=== PATIENT | female | born 1935 | race Caucasian/White ===

== ENCOUNTER 2018-04-14 16:26 | Inpatient (IN) | payer MEDICARE, OTHER ==
[~2018-04-14] VITALS: Ht 162.6 cm; Wt 75.3 kg
[~2018-04-14 16:26] MED LIST: APIX2.5T PO; ATOR10TA70 PO; CARV-49 PO; FURO40TA4 PO; LEVO50TA78 PO; LOSA25TA41 PO; POTA10CA44 PO
--- NOTE | 2018-04-14 16:33 | NUR ---
1 EPIP PUSHED CPR STARTED NO PULSE
[2018-04-14] MEDS ORDERED: ePHEDrine 50MG/ML INJ. IV ONE ×2 (16:35→16:45)
[2018-04-14] MEDS ORDERED: sodium bicarbonate (8.4%) 1 mEq/ml syringe IV ONE (16:35)
--- NOTE | 2018-04-14 16:40 | NUR ---
PT HR 118
--- NOTE | 2018-04-14 16:42 | NUR ---
PT HR 77
--- NOTE | 2018-04-14 16:51 | NUR ---
1650 DOPAMINE STARTED AT 6 MCG/MIN. DR ASHTON ORDERED POTASSIUM 10MEQ TO RUN OVER 15 MIN.
--- NOTE | 2018-04-14 16:54 | NUR ---
REJ IV STARTED. LABS DRAWN. 2L NS STARTED. 149/33 62 ETCO2 8 1656 PT BECAME PULSELESS, DR ASHTON AT BEDSIDE, EPI 1 AM ADMIN. 1657 BICARB 1 AMP ADMIN 1658 PULSE CHECK, POSITIVE THREADY PULSE. DOPAMINE INCREASED TO 8MCG. 1700 120/80 147 ETCO2 30 SPO2 64 FIO2 100 TEMP SORENSON PLACED TEMP 34.8 1706 115/71 137 89% FIO2 100 ETCO2 24 TEMP 34.7
[2018-04-14] MEDS ORDERED: potassium 10mEq/100ml NS w/LIDOcaine (10mg/bag) IV ONE (16:55)
[2018-04-14 17:21] LABS: ABG BASE EXCESS -8.5 mmol/L (-2.0-3.0); ABG HCO3 19.5 mmol/L (22.0-26.0); ABG OXYGEN SATURATION 97.6 % (95-98); ABG PCO2 (T) 45.4 mmHg (32.0-45.0); ABG PH (T) 7.237 (7.350-7.450); ABG PO2 (T) 121.7 mmHg (83-108); FCOHb 0.9 % (0.5-1.5); FMetHb 0.2 % (0.3-1.12); FO2Hb 96.5 % (94-100); PATIENT TEMPERATURE 34.4; PEEP 5 cm H2O; RESPIRATORY RATE 16 b/min; TIDAL VOLUME 500 mL; TOTAL HEMOGLOBIN 12.7 G/dl (12.0-16.0)
[2018-04-14] MEDS ORDERED: aspirin 81mg tab.chew PO ONE (17:30)
[2018-04-14] MEDS: DOPamine 400mg/D5W 250ml 250 ML IV SCH (17:35)
--- NOTE | 2018-04-14 17:44 | NUR ---
BP 115/60 HR 133 SAT 100 RR 21 TEMP 33.2 FI02 81
[2018-04-14 17:48] LABS: BASOPHILS % (AUTO) 0.3 % (0-1); EOSINOPHILS # (AUTO) 0.1 X10'3 (0-0.9); EOSINOPHILS % (AUTO) 1.3 % (0-6); HEMATOCRIT 37.1 % (35.0-45.0); HEMOGLOBIN 11.7 g/dl (12.0-16.0); LYMPHOCYTES # (AUTO) 2.5 X10'3 (1.1-4.8); MEAN CORPUSCULAR HEMOGLOBIN 27.8 PG (27.0-31.0); MEAN CORPUSCULAR HGB CONC 31.4 % (33.0-36.5); MEAN CORPUSCULAR VOLUME 88.6 FL (78-98); MEAN PLATELET VOLUME 7.9 FL (7.4-10.4); MONOCYTES # (AUTO) 0.6 X10'3 (0-0.9); MONOCYTES % (AUTO) 6.5 % (2-12); NEUTROPHILS # (AUTO) 6.6 X10'3 (1.8-7.7); NEUTROPHILS % (AUTO) 66.9 % (42-75); PLATELET COUNT 226 X10'3 (140-440); RED BLOOD COUNT 4.19 X10'6 (4.20-5.60); RED CELL DISTRIBUTION WIDTH 18.5 % (11.5-14.5); WHITE BLOOD COUNT 9.9 X10'3 (4.5-11.0)
[2018-04-14 18:00] LABS: ALANINE AMINOTRANSFERASE 25 U/L (12-78); ALBUMIN 2.1 G/DL (3.4-5.0); ALBUMIN/GLOBULIN RATIO 0.6 (1.1-1.5); ALKALINE PHOSPHATASE 58 IU/L (46-116); ANION GAP 18 (8-16); ASPARTATE AMINO TRANSFERASE 46 U/L (10-37); BILIRUBIN,TOTAL 1.4 MG/DL (0.1-1.0); BLOOD UREA NITROGEN 42 MG/DL (7-18); BUN/CREATININE RATIO 23.5 (6.6-38.0); CALCIUM 8.1 MG/DL (8.5-10.1); CHLORIDE 103 MMOL/L (99-107); CREATININE 1.79 MG/DL (0.40-0.90); GLUCOSE 251 MG/DL (70-104); SODIUM 142 MMOL/L (135-145); TOTAL CARBON DIOXIDE 21.1 MMOL/L (24-32); TOTAL PROTEIN 5.7 G/DL (6.4-8.2); eGFR 27 ML/MIN
[2018-04-14 18:03] LABS: POTASSIUM 3.7 MMOL/L (3.5-5.1)
[2018-04-14 18:08] LABS: MAGNESIUM 2.2 MG/DL (1.5-2.4)
--- NOTE | 2018-04-14 18:12 | NUR ---
INTENSIVEST AT BEDSIDE. ORDERED TO DECREASED 80 TO 60 FIO2 PEEP 8 VT DECREASED 500 TO 450
[2018-04-14 19:05] LABS: TOTAL CELLS COUNTED 100
[2018-04-14 19:06] LABS: ANISOCYTOSIS 2+; PLATELET ESTIMATE NORMAL
[2018-04-14 19:07] LABS: BURR CELLS 2+
--- NOTE | 2018-04-14 19:41 | NUR ---
INFORMED DA ZELAYA OF PTS FULL BODY JERKING MOVEMENT AND BITING THE TUBE. ALSO TOLD THAT PT IS STILL 4MM AND FIXED BILATERAL PUPILS AND UNRESPONSIVE TO PAINFUL STIMULI. STATED HE WOULD PUT IN ORDERS FOR COOLING MEASURES
[2018-04-14] MEDS ORDERED: CISatracurium besylate inj. 200 MG in normal saline 250ml IV soln 180 ML IV PRN (19:44)
[2018-04-14] MEDS ORDERED: vancomycin/NS 1 GM ADD-VANTAGE 250 ML IV ONE (19:45)
[2018-04-14] MEDS ORDERED: potassium Cl 40MEQ/250ML bag 250 ML IV SCH (19:45)
[2018-04-14] MEDS ORDERED: potassium Cl 20 mEq SR tablet PO PRN ×2 (19:45)
[2018-04-14] MEDS ORDERED: sodium phosphate inj. 15 MMOL in dextrose 5%-water 150 ML IV PRN (19:45)
[2018-04-14] MEDS ORDERED: sodium phosphate inj. 30 MMOL in dextrose 5%-water 250 ML IV PRN (19:45)
[2018-04-14] MEDS ORDERED: CISatracurium **Bolus** 2 mg/ml inj IV PRN (19:45)
[2018-04-14] MEDS: K, MAG and/or Phos replacement - Verify level? MC SCH (19:45)
[2018-04-14] MEDS ORDERED: potassium Cl 40MEQ/250ML bag 250 ML IV PRN (19:45)
[2018-04-14] MEDS ORDERED: Neutra Phos packet PO PRN (19:45)
--- NOTE | 2018-04-14 19:54 | NUR ---
NATHALIE WANTED ME TO PLACE PT BACK ON ICE FOR PROTOCOL COOLING. PT IS 32.6 BLADDER TEMP AND PROTOCOL WANTS BETWEEN 32-34 C, SO ICE NOT APPLIED
[2018-04-14] MEDS: mineral oil/petrolatum ophthal oint OP SCH (20:00)
--- NOTE | 2018-04-14 20:08 | NUR ---
PTS FAMILY AT BEDSIDE. ABLE TO ANSWER SOME QUESTIONS, BUT PAGED DA ZELAYA FOR FURTHER QUESTIONS
[2018-04-14] MEDS ORDERED: acetaminophen 325mg tablet PO PRN (20:10)
[2018-04-14] MEDS ORDERED: acetaminophen 650mg rectal suppository RC PRN (20:10)
[2018-04-14 20:27] LABS: INR 1.5 INR; PARTIAL THROMBOPLASTIN TIME 28 SECONDS (22-32); PROTHROMBIN TIME 14.5 SECONDS (9.0-12.0)
[2018-04-14] MEDS: heparin, porcine 5000 units/ml vial SQ SCH (20:32)
[2018-04-14] MEDS: normal saline 1000ml 1,000 ML IV SCH (20:32)
[2018-04-14] MEDS: piperacillin/tazo 3.375gm/50ml 50 ML IV SCH (20:39)
[2018-04-14] MEDS: meperidine/PF 50mg/ml syringe IV SCH (20:59)
--- NOTE | 2018-04-14 21:06 | NUR ---
PER CLINICAL PHARM, NIMBEX, DOPAMINE, VANCO COMPATIBLE PIV ON LEFT EJ. ZOSYN SEPARATE ON RIGHT HAND WITH NS
--- NOTE | 2018-04-14 21:20 | NUR ---
I have received report from Mariano ESTES and had the opportunity to ask questions and assume patient care.
--- NOTE | 2018-04-14 21:30 | NUR ---
Pt to room 2007, bagged by RT. Pt is Post Code on cooling measures, slight facial twitching noted, Nimbex had been started in ED, will titrate if needed. Pt has some bruising on her right side from a previous fall, still waiting on [place] medical records. No family at bedside.
[2018-04-14 22:00] VITALS: BP 135/94
[2018-04-14] MEDS: FENTANYL-0.9 % NACL/PF 100 ML IV PRN (22:27)
[2018-04-14] MEDS: midazolam 100mg in NS 100ml 100 ML IV PRN (22:28)
[2018-04-14] MEDS: amiodarone/D5 360MG/200ML BAG 200 ML IV SCH (22:42)
[2018-04-14 23:00] VITALS: BP 151/84
[2018-04-14] MEDS: ipratropium/albuterol 3ml nebule NEB SCH (23:24)
[2018-04-15] VITALS (24 sets, daily range): BP systolic 73–131; BP diastolic 48–92
[2018-04-15] MEDS: mineral oil/petrolatum ophthal oint OP SCH ×6 (00:19→20:11)
[2018-04-15] MEDS: piperacillin/tazo 3.375gm/50ml 50 ML IV SCH ×4 (02:37→20:11)
[2018-04-15 03:03] LABS: BASOPHILS % (AUTO) 0.1 % (0-1); EOSINOPHILS # (AUTO) 0.1 X10'3 (0-0.9); EOSINOPHILS % (AUTO) 0.6 % (0-6); HEMOGLOBIN 13.4 g/dl (12.0-16.0); LYMPHOCYTES # (AUTO) 1.1 X10'3 (1.1-4.8); LYMPHOCYTES % (AUTO) 6.8 % (21-51); MEAN CORPUSCULAR HEMOGLOBIN 27.7 PG (27.0-31.0); MEAN CORPUSCULAR HGB CONC 32.7 % (33.0-36.5); MEAN CORPUSCULAR VOLUME 84.9 FL (78-98); MEAN PLATELET VOLUME 7.5 FL (7.4-10.4); MONOCYTES # (AUTO) 0.8 X10'3 (0-0.9); MONOCYTES % (AUTO) 5.2 % (2-12); NEUTROPHILS # (AUTO) 13.7 X10'3 (1.8-7.7); NEUTROPHILS % (AUTO) 87.3 % (42-75); PLATELET COUNT 261 X10'3 (140-440); RED BLOOD COUNT 4.83 X10'6 (4.20-5.60); RED CELL DISTRIBUTION WIDTH 17.7 % (11.5-14.5); WHITE BLOOD COUNT 15.7 X10'3 (4.5-11.0)
[2018-04-15] MEDS ORDERED: dextrose 50%-water 50ml dispensing syringe IV PRN (03:05)
[2018-04-15] MEDS: ipratropium/albuterol 3ml nebule NEB SCH ×6 (03:15→23:10)
[2018-04-15 03:17] LABS: INR 1.6 INR; PARTIAL THROMBOPLASTIN TIME 31 SECONDS (22-32); PROTHROMBIN TIME 15.4 SECONDS (9.0-12.0)
[2018-04-15] MEDS: amiodarone/D5 360MG/200ML BAG 200 ML IV SCH ×4 (03:25→22:38)
[2018-04-15 03:31] LABS: ABG BASE EXCESS 4.5 mmol/L (-2.0-3.0); ABG HCO3 23.4 mmol/L (22.0-26.0); ABG OXYGEN SATURATION 97.3 % (95-98); ABG PCO2 (T) 17.8 mmHg (32.0-45.0); ABG PH (T) 7.724 (7.350-7.450); ABG PO2 (T) 62.9 mmHg (83-108); ALLEN'S TEST Positive; FCOHb 0.7 % (0.5-1.5); FMetHb 0.1 % (0.3-1.12); FO2Hb 96.5 % (94-100); MINUTE VOLUME 12 L/min; PATIENT TEMPERATURE 32.7; PEEP 8 cm H2O; RESPIRATORY RATE 24 b/min; RESPIRATORY RATE (OBSERVED) 24 b/min; TIDAL VOLUME 503 mL
[2018-04-15 03:44] LABS: ALANINE AMINOTRANSFERASE 51 U/L (12-78); ALBUMIN 2.6 G/DL (3.4-5.0); ALBUMIN/GLOBULIN RATIO 0.7 (1.1-1.5); ALKALINE PHOSPHATASE 80 IU/L (46-116); ANION GAP 17 (8-16); ASPARTATE AMINO TRANSFERASE 98 U/L (10-37); BILIRUBIN,TOTAL 3.5 MG/DL (0.1-1.0); BLOOD UREA NITROGEN 46 MG/DL (7-18); BUN/CREATININE RATIO 31.5 (6.6-38.0); CALCIUM 8.3 MG/DL (8.5-10.1); CHLORIDE 103 MMOL/L (99-107); CKMB RELATIVE INDEX 1.7 RATIO (0-2.5); CREATINE KINASE 532 U/L (26-192); CREATININE 1.46 MG/DL (0.40-0.90); GLUCOSE 220 MG/DL (70-104); MAGNESIUM 1.7 MG/DL (1.5-2.4); PHOSPHORUS 1.6 MG/DL (2.3-4.5); SODIUM 144 MMOL/L (135-145); TOTAL CARBON DIOXIDE 24.4 MMOL/L (24-32); TOTAL PROTEIN 6.6 G/DL (6.4-8.2); TROPONIN I 0.42 NG/ML (0.0-0.05); eGFR 34 ML/MIN
[2018-04-15 03:46] LABS: POTASSIUM 2.5 MMOL/L (3.5-5.1)
[2018-04-15] MEDS: meperidine/PF 50mg/ml syringe IV SCH ×2 (04:00)
[2018-04-15] MEDS ORDERED: magnesium 4gm in 100ml NS 100 ML IV PRN (04:05)
[2018-04-15] MEDS ORDERED: magnesium 2GM in 50ml NS 50 ML IV PRN (04:05)
[2018-04-15] MEDS ORDERED: potassium Cl 40MEQ/NS 500ml 500 ML IV PRN ×2 (04:05)
[2018-04-15] MEDS: insulin regular, human 100 UNIT in normal saline 100ml IV soln 99 ML IV SCH ×2 (04:06)
--- NOTE | 2018-04-15 06:28 | NUR ---
Problems reprioritized. Patient report given, questions answered & plan of care reviewed with Elaina ESTES.
--- NOTE | 2018-04-15 06:30 | NUR ---
Patient in room CICU 2008. I have received report from sky and had the opportunity to ask questions and assume patient care.
[2018-04-15] MEDS: pantoprazole 40 MG vial IV SCH (07:54)
[2018-04-15] MEDS: heparin, porcine 5000 units/ml vial SQ SCH ×2 (07:54→20:15)
[2018-04-15] MEDS: K, MAG and/or Phos replacement - Verify level? MC SCH (08:00)
[2018-04-15] MEDS: DOPamine 400mg/D5W 250ml 250 ML IV SCH ×2 (08:04→22:11)
[2018-04-15] MEDS ORDERED: epiNEPHrine 0.1mg/ml 10ml syringe ONE (09:00)
[2018-04-15] MEDS ORDERED: DOPamine/D5W 400mg/250ml bag IV ONE (09:00)
[2018-04-15] MEDS ORDERED: sodium bicarbonate (8.4%) 1 mEq/ml syringe ONE (09:00)
--- NOTE | 2018-04-15 09:00 | NUR ---
pt paralyzed on nimbex. tof / on 4. sbp 80's to 90's on dopamine gtt at 6mcg. update to dr collier- aware of pt not having cl- and on dopamine-order for picc tomorrow- consent signed by . discussed eeg- order placed.
[2018-04-15] MEDS ORDERED: CARV-50 PO (10:02)
[2018-04-15] MEDS ORDERED: SYN0.088T PO (10:09)
[2018-04-15] MEDS ORDERED: LEVO75TA PO (10:11)
[2018-04-15] MEDS ORDERED: ZAR2.5T (10:14)
[2018-04-15] MEDS ORDERED: POTA10CA44 PO (10:14)
[2018-04-15] MEDS ORDERED: ZAR2.5T PO (10:20)
[2018-04-15] MEDS ORDERED: POTA10TA10 PO (10:21)
--- NOTE | 2018-04-15 11:00 | NUR ---
med rec done from dc instructions from discharge 04/14 [facility] [place]. faxed request for records and recieved.
[2018-04-15 11:11] LABS: ALBUMIN 2.3 G/DL (3.4-5.0); ANION GAP 16 (8-16); BLOOD UREA NITROGEN 43 MG/DL (7-18); BUN/CREATININE RATIO 28.5 (6.6-38.0); CALCIUM 8.2 MG/DL (8.5-10.1); CHLORIDE 105 MMOL/L (99-107); CREATININE 1.51 MG/DL (0.40-0.90); GLUCOSE 129 MG/DL (70-104); MAGNESIUM 1.8 MG/DL (1.5-2.4); SODIUM 146 MMOL/L (135-145); TOTAL CARBON DIOXIDE 24.6 MMOL/L (24-32); eGFR 33 ML/MIN
[2018-04-15 11:13] LABS: POTASSIUM 2.8 MMOL/L (3.5-5.1)
[2018-04-15 11:41] LABS: ABG BASE EXCESS 2.3 mmol/L (-2.0-3.0); ABG HCO3 23.1 mmol/L (22.0-26.0); ABG OXYGEN SATURATION 99.3 % (95-98); ABG PCO2 (T) 26.3 mmHg (32.0-45.0); ABG PH (T) 7.562 (7.350-7.450); ABG PO2 (T) 213.4 mmHg (83-108); ALLEN'S TEST Positive; FCOHb 0.3 % (0.5-1.5); FMetHb 0.2 % (0.3-1.12); FO2Hb 98.8 % (94-100); MINUTE VOLUME 8 L/min; PEEP 8 cm H2O; RESPIRATORY RATE 16 b/min; RESPIRATORY RATE (OBSERVED) 16 b/min; TIDAL VOLUME 450 mL; TOTAL HEMOGLOBIN 14.5 G/dl (12.0-16.0)
[2018-04-15 12:50] LABS: CKMB RELATIVE INDEX 2.2 RATIO (0-2.5); CREATINE KINASE 432 U/L (26-192); TROPONIN I 0.35 NG/ML (0.0-0.05)
--- NOTE | 2018-04-15 14:15 | NUR ---
nephew and great nesandra in- tearful- explained meds, eeg test, warming etc- cards given to call in if needed. they all live together- pt has no children. sister last week.
[2018-04-15] MEDS: normal saline 1000ml 1,000 ML IV SCH (15:03)
[2018-04-15 16:10] LABS: ALBUMIN 2.2 G/DL (3.4-5.0); ANION GAP 11 (8-16); BLOOD UREA NITROGEN 46 MG/DL (7-18); BUN/CREATININE RATIO 30.5 (6.6-38.0); CALCIUM 8.1 MG/DL (8.5-10.1); CHLORIDE 105 MMOL/L (99-107); CREATININE 1.51 MG/DL (0.40-0.90); GLUCOSE 141 MG/DL (70-104); MAGNESIUM 1.7 MG/DL (1.5-2.4); PHOSPHORUS 3.8 MG/DL (2.3-4.5); POTASSIUM 3.4 MMOL/L (3.5-5.1); SODIUM 143 MMOL/L (135-145); TOTAL CARBON DIOXIDE 27.1 MMOL/L (24-32); eGFR 33 ML/MIN
--- NOTE | 2018-04-15 18:30 | NUR ---
Patient in room CICU 2008. I have received report from Elaina ESTES and had the opportunity to ask questions and assume patient care.
[2018-04-15 20:25] LABS: ABG BASE EXCESS -0.4 mmol/L (-2.0-3.0); ABG HCO3 19.9 mmol/L (22.0-26.0); ABG OXYGEN SATURATION 98.9 % (95-98); ABG PCO2 (T) 19.9 mmHg (32.0-45.0); ABG PH (T) 7.607 (7.350-7.450); ABG PO2 (T) 130.4 mmHg (83-108); FCOHb 0.5 % (0.5-1.5); FMetHb 0.3 % (0.3-1.12); FO2Hb 98.1 % (94-100); PATIENT TEMPERATURE 33.8; PEEP 8 cm H2O; RESPIRATORY RATE 16 b/min; RESPIRATORY RATE (OBSERVED) 16 b/min; TIDAL VOLUME 450 mL; TOTAL HEMOGLOBIN 14.2 G/dl (12.0-16.0)
[2018-04-15] MEDS: vancomycin/NS 1 GM ADD-VANTAGE 250 ML IV SCH (20:38)
[2018-04-15 21:11] LABS: ALBUMIN 2.3 G/DL (3.4-5.0); ANION GAP 16 (8-16); BLOOD UREA NITROGEN 48 MG/DL (7-18); BUN/CREATININE RATIO 30.8 (6.6-38.0); CALCIUM 8.3 MG/DL (8.5-10.1); CHLORIDE 103 MMOL/L (99-107); CKMB RELATIVE INDEX 2.5 RATIO (0-2.5); CREATINE KINASE 340 U/L (26-192); CREATININE 1.56 MG/DL (0.40-0.90); GLUCOSE 141 MG/DL (70-104); MAGNESIUM 1.8 MG/DL (1.5-2.4); SODIUM 144 MMOL/L (135-145); TOTAL CARBON DIOXIDE 24.9 MMOL/L (24-32); TROPONIN I 0.28 NG/ML (0.0-0.05); eGFR 32 ML/MIN
[2018-04-15 21:14] LABS: POTASSIUM 3.8 MMOL/L (3.5-5.1)
[2018-04-15] MEDS ORDERED: albumin (Human) 5% 250ml 250 ML IV ONE ×2 (22:15)
[2018-04-15] MEDS: midazolam 100mg in NS 100ml 100 ML IV PRN (22:20)
[2018-04-15] MEDS: FENTANYL-0.9 % NACL/PF 100 ML IV PRN (22:20)
[2018-04-15] MEDS: albumin (Human) 5% 250ml 250 ML IV SCH ×2 (22:30→23:28)
--- NOTE | 2018-04-15 22:38 | NUR ---
Pt requiring increasing amount of Dopamine as she warms, past max dose of 10mcg, currently at 14mcg, Fabio Andrews JANITOR HELPER aware, Albumin ordered.
[2018-04-16] VITALS (24 sets, daily range): BP systolic 66–107; BP diastolic 40–73
--- NOTE | 2018-04-16 00:16 | NUR ---
Albumin given, NS fluid bolus started. Blood pressure not improving, He Andrews NP aware. Fentanyl and versed off x1 hr, Nimbex now off.
--- NOTE | 2018-04-16 00:25 | NUR ---
Pt does not have a central line to start Levophed, Dobutamine suggested to Fabio Andrews GEAR LAPPER. Pt, per senior nuclear medicine technologist prognosis did not look good, Pupils are now 8mm as she rewarms and remains fixed. Slight cough with deep suction. Awaiting call back for further orders. NS bolus still running.
[2018-04-16] MEDS ORDERED: normal saline 500ml IV soln 500 ML IV ONE (00:35)
[2018-04-16] MEDS: mineral oil/petrolatum ophthal oint OP SCH ×6 (00:38→20:10)
[2018-04-16] MEDS: DOBUTamine-DoBUTrex 500mg/D5W 250 ML IV PRN ×3 (01:11→20:01)
--- NOTE | 2018-04-16 01:38 | NUR ---
No improvement to BP after fluid bolusing. Dobutamine started as ordered and titrating to maintain map of 60.
[2018-04-16] MEDS: piperacillin/tazo 3.375gm/50ml 50 ML IV SCH ×3 (01:46→13:24)
[2018-04-16 01:51] LABS: ABG BASE EXCESS -8.3 mmol/L (-2.0-3.0); ABG HCO3 15.5 mmol/L (22.0-26.0); ABG OXYGEN SATURATION 96.2 % (95-98); ABG PCO2 (T) 25.2 mmHg (32.0-45.0); ABG PH (T) 7.397 (7.350-7.450); ABG PO2 (T) 83.6 mmHg (83-108); FCOHb 0.5 % (0.5-1.5); FMetHb 0.2 % (0.3-1.12); FO2Hb 95.5 % (94-100); PATIENT TEMPERATURE 34.8; PEEP 8 cm H2O; RESPIRATORY RATE 12 b/min; RESPIRATORY RATE (OBSERVED) 14 b/min; TIDAL VOLUME 450 mL; TOTAL HEMOGLOBIN 13.5 G/dl (12.0-16.0)
--- NOTE | 2018-04-16 01:53 | NUR ---
Unable to obtain continuous O2 pleth, ABG confirms that pt's O2 saturation is 96% on 40% FiO2.
--- NOTE | 2018-04-16 02:06 | NUR ---
Message left for Pt's niece Анна. Pt continues to deteriorate.
[2018-04-16] MEDS: normal saline 1000ml 1,000 ML IV SCH (02:36)
[2018-04-16] MEDS: amiodarone/D5 360MG/200ML BAG 200 ML IV SCH ×3 (02:36→23:58)
[2018-04-16] MEDS: insulin regular, human 100 UNIT in normal saline 100ml IV soln 99 ML IV SCH ×2 (03:05)
[2018-04-16] MEDS: ipratropium/albuterol 3ml nebule NEB SCH ×6 (03:10→23:17)
[2018-04-16 05:26] LABS: BASOPHILS % (AUTO) 0.1 % (0-1); EOSINOPHILS # (AUTO) 0.2 X10'3 (0-0.9); EOSINOPHILS % (AUTO) 1.4 % (0-6); HEMATOCRIT 38.6 % (35.0-45.0); HEMOGLOBIN 12.4 g/dl (12.0-16.0); LYMPHOCYTES # (AUTO) 1.6 X10'3 (1.1-4.8); LYMPHOCYTES % (AUTO) 9.7 % (21-51); MEAN CORPUSCULAR HEMOGLOBIN 27.8 PG (27.0-31.0); MEAN CORPUSCULAR HGB CONC 32.2 % (33.0-36.5); MEAN CORPUSCULAR VOLUME 86.3 FL (78-98); MEAN PLATELET VOLUME 7.8 FL (7.4-10.4); MONOCYTES # (AUTO) 0.7 X10'3 (0-0.9); MONOCYTES % (AUTO) 4.5 % (2-12); NEUTROPHILS # (AUTO) 13.6 X10'3 (1.8-7.7); NEUTROPHILS % (AUTO) 84.3 % (42-75); PLATELET COUNT 264 X10'3 (140-440); RED BLOOD COUNT 4.47 X10'6 (4.20-5.60); RED CELL DISTRIBUTION WIDTH 18.4 % (11.5-14.5); WHITE BLOOD COUNT 16.2 X10'3 (4.5-11.0)
[2018-04-16 06:32] LABS: ALANINE AMINOTRANSFERASE 25 U/L (12-78); ALBUMIN 2.7 G/DL (3.4-5.0); ALBUMIN/GLOBULIN RATIO 0.8 (1.1-1.5); ALKALINE PHOSPHATASE 50 IU/L (46-116); ANION GAP 18 (8-16); ASPARTATE AMINO TRANSFERASE 77 U/L (10-37); BILIRUBIN,TOTAL 3.3 MG/DL (0.1-1.0); CALCIUM 7.7 MG/DL (8.5-10.1); CHLORIDE 103 MMOL/L (99-107); CREATINE KINASE 227 U/L (26-192); CREATININE 1.86 MG/DL (0.40-0.90); GLUCOSE 138 MG/DL (70-104); MAGNESIUM 1.8 MG/DL (1.5-2.4); POTASSIUM 4.3 MMOL/L (3.5-5.1); SODIUM 143 MMOL/L (135-145); TOTAL CARBON DIOXIDE 21.7 MMOL/L (24-32); TROPONIN I 0.31 NG/ML (0.0-0.05); eGFR 26 ML/MIN
--- NOTE | 2018-04-16 06:32 | NUR ---
No call back from Pt's niece. Pt's map maintaining above 60 with Dopamine at max 10mcg, and Dobutamine at max 15mcg. Sedation off. Pt coughs against the vent, peaks pressures at times. HR increased from 110 average to 130's average. O2 Pleth now reading without difficulty.
[2018-04-16 06:39] LABS: BLOOD UREA NITROGEN 47 MG/DL (7-18); BUN/CREATININE RATIO 25.3 (6.6-38.0)
--- NOTE | 2018-04-16 06:41 | NUR ---
Problems reprioritized. Patient report given, questions answered & plan of care reviewed with Keri ESTES.
--- NOTE | 2018-04-16 06:49 | NUR ---
Patient in room CICU 2008. I have received report from :FRANKLYN cook and had the opportunity to ask questions and assume patient care.
[2018-04-16 07:31] LABS: CKMB RELATIVE INDEX 2.3 RATIO (0-2.5)
[2018-04-16] MEDS: K, MAG and/or Phos replacement - Verify level? MC SCH (08:00)
[2018-04-16] MEDS: DOPamine 400mg/D5W 250ml 250 ML IV SCH (08:02)
[2018-04-16] MEDS: pantoprazole 40 MG vial IV SCH (08:24)
[2018-04-16] MEDS: heparin, porcine 5000 units/ml vial SQ SCH ×2 (08:26→20:02)
[2018-04-16 12:31] LABS: INR 1.5 INR; PARTIAL THROMBOPLASTIN TIME 33 SECONDS (22-32); PROTHROMBIN TIME 14.5 SECONDS (9.0-12.0)
[2018-04-16 13:10] LABS: CKMB RELATIVE INDEX 1.8 RATIO (0-2.5); TROPONIN I 0.31 NG/ML (0.0-0.05)
--- NOTE | 2018-04-16 15:50 | NUR ---
Initial: Pt admitted d/t cardiac arrest. Pt intubated and on hypothermia protocol. If prolonged intubation, recommend continuous TF of Vital high protein at 60 mL/hr to meet estimated nutrient needs. Will continue to follow. Recommendations: 1) If prolonged intubation recommend continuous TF of Vital high protein at 60 mL/hr 2) If above, daily wt and prealbumin q / 3) Following extubation advance diet to heart healthy as medically indicated Addendum: 04/16/18 at [address] Amended: Links added.
--- NOTE | 2018-04-16 18:30 | NUR ---
Problems reprioritized. Patient report given, questions answered & plan of care reviewed with FRANKLYN Hagan.
--- NOTE | 2018-04-16 18:53 | NUR ---
Patient in room CICU 2008. I have received report from Keri ESTES and had the opportunity to ask questions and assume patient care. Patient laying in bed, intubed and obtunded, not on any sedation. Dobutamine, dopamine, and amiodarone infusing, BP at 98/53 with HR between 120-140 in afib. Patient saturating at 100% and breathing at 14 breaths/min on ventilator. Will continue to monitor patient.
[2018-04-16] MEDS: vancomycin/NS 1 GM ADD-VANTAGE 250 ML IV SCH (20:01)
[2018-04-16] MEDS: lactobacillus rhamnosus 10,000 MMU CELLS/CAPSULE PO SCH (20:10)
[2018-04-16] MEDS: piperacillin/tazobactam inj. 2.25 GM in normal saline 50ml IV IV SCH (20:20)
--- NOTE | 2018-04-16 23:30 | NUR ---
Informed patient's niece and POA regarding Dr. Vidal's suggested family meeting for tomorrow at noon. Niece states she will be here tomorrow at noon.
[2018-04-17] VITALS (23 sets, daily range): BP systolic 86–127; BP diastolic 51–71
[2018-04-17] MEDS: mineral oil/petrolatum ophthal oint OP SCH ×6 (00:31→20:09)
[2018-04-17] MEDS: DOPamine 400mg/D5W 250ml 250 ML IV SCH (01:21)
[2018-04-17] MEDS: amiodarone/D5 360MG/200ML BAG 200 ML IV SCH ×4 (01:23→23:10)
[2018-04-17] MEDS: piperacillin/tazobactam inj. 2.25 GM in normal saline 50ml IV IV SCH ×4 (02:56→19:41)
[2018-04-17] MEDS: ipratropium/albuterol 3ml nebule NEB SCH ×6 (03:06→23:29)
[2018-04-17 03:23] LABS: BASOPHILS % (AUTO) 0.1 % (0-1); EOSINOPHILS # (AUTO) 0.2 X10'3 (0-0.9); EOSINOPHILS % (AUTO) 1.6 % (0-6); HEMATOCRIT 34.5 % (35.0-45.0); HEMOGLOBIN 11.2 g/dl (12.0-16.0); LYMPHOCYTES # (AUTO) 1.1 X10'3 (1.1-4.8); LYMPHOCYTES % (AUTO) 9.8 % (21-51); MEAN CORPUSCULAR HEMOGLOBIN 27.7 PG (27.0-31.0); MEAN CORPUSCULAR HGB CONC 32.5 % (33.0-36.5); MEAN CORPUSCULAR VOLUME 85.1 FL (78-98); MEAN PLATELET VOLUME 7.7 FL (7.4-10.4); MONOCYTES # (AUTO) 0.8 X10'3 (0-0.9); MONOCYTES % (AUTO) 6.8 % (2-12); NEUTROPHILS # (AUTO) 9.4 X10'3 (1.8-7.7); NEUTROPHILS % (AUTO) 81.7 % (42-75); PLATELET COUNT 244 X10'3 (140-440); RED BLOOD COUNT 4.05 X10'6 (4.20-5.60); RED CELL DISTRIBUTION WIDTH 18.4 % (11.5-14.5); WHITE BLOOD COUNT 11.5 X10'3 (4.5-11.0)
[2018-04-17 03:36] LABS: ABG BASE EXCESS -0.5 mmol/L (-2.0-3.0); ABG HCO3 22.3 mmol/L (22.0-26.0); ABG OXYGEN SATURATION 98.1 % (95-98); ABG PCO2 (T) 30.6 mmHg (32.0-45.0); ABG PO2 (T) 110.7 mmHg (83-108); ALLEN'S TEST Positive; FCOHb 0.4 % (0.5-1.5); FMetHb 0.2 % (0.3-1.12); FO2Hb 97.5 % (94-100); MINUTE VOLUME 10 L/min; PATIENT TEMPERATURE 36.6; PEEP 8 cm H2O; RESPIRATORY RATE 12 b/min; RESPIRATORY RATE (OBSERVED) 19 b/min; TIDAL VOLUME 450 mL; TOTAL HEMOGLOBIN 12.3 G/dl (12.0-16.0)
[2018-04-17 03:50] LABS: ALANINE AMINOTRANSFERASE 33 U/L (12-78); ALBUMIN 2.3 G/DL (3.4-5.0); ALBUMIN/GLOBULIN RATIO 0.7 (1.1-1.5); ALKALINE PHOSPHATASE 47 IU/L (46-116); ANION GAP 17 (8-16); ASPARTATE AMINO TRANSFERASE 111 U/L (10-37); BLOOD UREA NITROGEN 51 MG/DL (7-18); BUN/CREATININE RATIO 24.6 (6.6-38.0); CALCIUM 7.7 MG/DL (8.5-10.1); CHLORIDE 101 MMOL/L (99-107); CREATININE 2.07 MG/DL (0.40-0.90); GLUCOSE 178 MG/DL (70-104); MAGNESIUM 1.7 MG/DL (1.5-2.4); PHOSPHORUS 5.2 MG/DL (2.3-4.5); POTASSIUM 3.3 MMOL/L (3.5-5.1); SODIUM 140 MMOL/L (135-145); TOTAL CARBON DIOXIDE 22.4 MMOL/L (24-32); TOTAL PROTEIN 5.5 G/DL (6.4-8.2); eGFR 23 ML/MIN
[2018-04-17 04:05] LABS: INR 1.4 INR; PARTIAL THROMBOPLASTIN TIME 31 SECONDS (22-32); PROTHROMBIN TIME 14.4 SECONDS (9.0-12.0)
[2018-04-17] MEDS: DOBUTamine-DoBUTrex 500mg/D5W 250 ML IV PRN (05:43)
--- NOTE | 2018-04-17 06:23 | NUR ---
Problems reprioritized. Patient report given, questions answered & plan of care reviewed with Keri ESTES.
--- NOTE | 2018-04-17 06:49 | NUR ---
Patient in room CICU 2007. I have received report from FRANKLYN Hagan and had the opportunity to ask questions and assume patient care.
[2018-04-17] MEDS: K, MAG and/or Phos replacement - Verify level? MC SCH (08:00)
[2018-04-17] MEDS: pantoprazole 40 MG vial IV SCH (08:30)
[2018-04-17] MEDS: heparin, porcine 5000 units/ml vial SQ SCH ×2 (08:31→19:43)
[2018-04-17] MEDS: lactobacillus rhamnosus 10,000 MMU CELLS/CAPSULE PO SCH ×2 (08:31→20:10)
[2018-04-17] MEDS ORDERED: dextrose ORAL solution 15 GM/59 ML bottle PO PRN ×2 (12:00)
[2018-04-17] MEDS ORDERED: insulin Lispro (HumaLOG) vial - multi-dose SQ SCH (12:00)
[2018-04-17] MEDS ORDERED: MESSAGE TO PHARMACY PO ONE (12:00)
[2018-04-17] MEDS ORDERED: dextrose 50%-water 50ml dispensing syringe IV PRN ×2 (12:00)
[2018-04-17] MEDS ORDERED: glucagon, human recombinant 1mg kit SUBCUT PRN (12:00)
--- NOTE | 2018-04-17 12:27 | NUR ---
TF consult: Pt remains intubated and rewarmed. TF recs below. Will continue to follow. follow. Recommendations: 1) Continuous TF of Vital high protein with goal of 60 mL/hr to provide: total volume 1440 mL/day, 1440 kcal, 126 g protein, and 1204 mL water meeting 100% estimated nutrient needs 2) 100 mL water flush q 6 hours 3) Daily wt and prealbumin q / 4) Following extubation advance diet to heart healthy as medically indicated Addendum: 04/17/18 at [address] Amended: Links added.
[2018-04-17] MEDS ORDERED: morphine 4 MG/ML inj SYRINge IV PRN (14:40)
--- NOTE | 2018-04-17 18:30 | NUR ---
Patient in room CICU 2008. I have received report from FRANKLYN Saavedra and had the opportunity to ask questions and assume patient care.
--- NOTE | 2018-04-17 18:59 | NUR ---
Problems reprioritized. Patient report given, questions answered & plan of care reviewed with FRANKLYN Park.
[2018-04-17] MEDS ORDERED: VANCOMYCIN LEVEL IV ONE (19:30)
--- NOTE | 2018-04-17 20:23 | NUR ---
Critical Vanco trough of 20.5, spoke with Bridget in pharmacy and she said to run 1gm dose that is due at 1999 and they will re-evaluate future dosing .
[2018-04-17] MEDS: vancomycin/NS 1 GM ADD-VANTAGE 250 ML IV SCH (20:26)
[2018-04-17] MEDS: normal saline 1000ml 1,000 ML IV SCH (20:28)
[2018-04-17] MEDS: insulin glargine (Lantus) pen - multi-dose SQ SCH (21:00)
--- NOTE | 2018-04-17 23:30 | NUR ---
Unable to start tube feeding til this time due to difficultly with tube feeding pump. It was not working and second pump was also not working. It was not til i found a third pump that I was able to start the tube feeding.
[2018-04-18] VITALS (24 sets, daily range): BP systolic 78–116; BP diastolic 54–73
[2018-04-18] MEDS: mineral oil/petrolatum ophthal oint OP SCH ×7 (00:28→23:39)
[2018-04-18] MEDS: amiodarone/D5 360MG/200ML BAG 200 ML IV SCH ×5 (00:29→23:34)
[2018-04-18] MEDS: DOPamine 400mg/D5W 250ml 250 ML IV SCH ×2 (00:29→23:34)
[2018-04-18] MEDS: piperacillin/tazobactam inj. 2.25 GM in normal saline 50ml IV IV SCH ×4 (02:10→20:33)
[2018-04-18 02:20] LABS: ABG BASE EXCESS 0.9 mmol/L (-2.0-3.0); ABG HCO3 23.6 mmol/L (22.0-26.0); ABG OXYGEN SATURATION 97.5 % (95-98); ABG PCO2 (T) 30.6 mmHg (32.0-45.0); ABG PH (T) 7.502 (7.350-7.450); ABG PO2 (T) 91.5 mmHg (83-108); ALLEN'S TEST Positive; FCOHb 0.3 % (0.5-1.5); FMetHb 0.2 % (0.3-1.12); MINUTE VOLUME 6 L/min; PATIENT TEMPERATURE 36.2; PEEP 8 cm H2O; RESPIRATORY RATE 10 b/min; RESPIRATORY RATE (OBSERVED) 11 b/min; TIDAL VOLUME 450 mL; TOTAL HEMOGLOBIN 12.1 G/dl (12.0-16.0)
[2018-04-18 03:16] LABS: BASOPHILS % (AUTO) 0.2 % (0-1); EOSINOPHILS # (AUTO) 0.2 X10'3 (0-0.9); EOSINOPHILS % (AUTO) 1.4 % (0-6); HEMATOCRIT 34.1 % (35.0-45.0); HEMOGLOBIN 10.9 g/dl (12.0-16.0); LYMPHOCYTES # (AUTO) 1.2 X10'3 (1.1-4.8); LYMPHOCYTES % (AUTO) 10.7 % (21-51); MEAN CORPUSCULAR HEMOGLOBIN 27.3 PG (27.0-31.0); MEAN CORPUSCULAR HGB CONC 32.1 % (33.0-36.5); MEAN CORPUSCULAR VOLUME 85.1 FL (78-98); MEAN PLATELET VOLUME 7.7 FL (7.4-10.4); MONOCYTES # (AUTO) 0.7 X10'3 (0-0.9); MONOCYTES % (AUTO) 5.8 % (2-12); NEUTROPHILS # (AUTO) 9.6 X10'3 (1.8-7.7); NEUTROPHILS % (AUTO) 81.9 % (42-75); PLATELET COUNT 234 X10'3 (140-440); RED CELL DISTRIBUTION WIDTH 18.7 % (11.5-14.5); WHITE BLOOD COUNT 11.7 X10'3 (4.5-11.0)
[2018-04-18] MEDS: ipratropium/albuterol 3ml nebule NEB SCH ×6 (03:25→23:12)
[2018-04-18 03:27] LABS: INR 1.3 INR; PARTIAL THROMBOPLASTIN TIME 27 SECONDS (22-32); PROTHROMBIN TIME 12.7 SECONDS (9.0-12.0)
[2018-04-18 03:32] LABS: ALANINE AMINOTRANSFERASE 28 U/L (12-78); ALBUMIN 2.2 G/DL (3.4-5.0); ALBUMIN/GLOBULIN RATIO 0.6 (1.1-1.5); ALKALINE PHOSPHATASE 48 IU/L (46-116); ANION GAP 14 (8-16); ASPARTATE AMINO TRANSFERASE 119 U/L (10-37); BILIRUBIN,TOTAL 1.7 MG/DL (0.1-1.0); BLOOD UREA NITROGEN 42 MG/DL (7-18); CALCIUM 7.7 MG/DL (8.5-10.1); CHLORIDE 103 MMOL/L (99-107); CREATININE 1.83 MG/DL (0.40-0.90); GLUCOSE 143 MG/DL (70-104); MAGNESIUM 1.6 MG/DL (1.5-2.4); SODIUM 141 MMOL/L (135-145); TOTAL CARBON DIOXIDE 24.5 MMOL/L (24-32); TOTAL PROTEIN 5.6 G/DL (6.4-8.2); eGFR 26 ML/MIN
[2018-04-18 03:37] LABS: POTASSIUM 2.8 MMOL/L (3.5-5.1)
[2018-04-18] MEDS: normal saline 1000ml 1,000 ML IV SCH ×2 (03:44→23:39)
[2018-04-18] MEDS ORDERED: potassium Cl 40MEQ/NS 500ml 500 ML IV PRN (04:50)
[2018-04-18] MEDS: potassium Cl 40MEQ/NS 500ml 500 ML IV PRN ×2 (04:55→10:36)
--- NOTE | 2018-04-18 06:35 | NUR ---
Problems reprioritized. Patient report given, questions answered & plan of care reviewed with FRANKLYN Shepard.
--- NOTE | 2018-04-18 06:56 | NUR ---
Patient in room CICU 2008. I have received report from FRANKLYN Park and had the opportunity to ask questions and assume patient care.
[2018-04-18] MEDS: pantoprazole 40 MG vial IV SCH (07:34)
[2018-04-18] MEDS: heparin, porcine 5000 units/ml vial SQ SCH ×2 (07:35→20:32)
[2018-04-18] MEDS: lactobacillus rhamnosus 10,000 MMU CELLS/CAPSULE PO SCH ×2 (07:35→20:33)
[2018-04-18] MEDS: K, MAG and/or Phos replacement - Verify level? MC SCH (08:00)
--- NOTE | 2018-04-18 12:23 | NUR ---
Pt has been made DNR w/ comfort care. Will follow per protocol. Addendum: 04/18/18 at [address] Amended: Links added.
--- NOTE | 2018-04-18 12:39 | NUR ---
cryptologic technician technical states she will be here around 2pm
--- NOTE | 2018-04-18 17:11 | NUR ---
Per Dr. Vidal, EEG results dictate amount of brain activity is not survivable. Dr. Vidal attempted to contact family member, Toney and best friend, Noreen but did not answer phone. Will speak with family when they come back and relay information regarding EEG results. If family agrees, will extubate pt, d/c all meds and nutrition and initiate comfort care measures. Dr. Vidal states he does not need to be informed of these actions as long as RN gets the "okay" from family.
--- NOTE | 2018-04-18 18:27 | NUR ---
Problems reprioritized. Patient report given, questions answered & plan of care reviewed with FRANKLYN Park.
--- NOTE | 2018-04-18 18:30 | NUR ---
Patient in room CICU 2008. I have received report from FRANKLYN Shepard and had the opportunity to ask questions and assume patient care.
--- NOTE | 2018-04-18 19:00 | NUR ---
Patient found spitting up tube feeding though tube feeding is off at this time. Patient's OG tube advanced to better assess residuals. Residuals remain low. Will keep tube feeding off and reassess in one hour.
[2018-04-18] MEDS ORDERED: vancomycin/NS 1 GM ADD-VANTAGE 250 ML IV SCH (20:00)
[2018-04-18] MEDS ORDERED: VANCOMYCIN 750MG IV in NS 250 ML IV SCH (20:00)
--- NOTE | 2018-04-18 20:00 | NUR ---
Patient found to be spitting up tube feeding again, despite tube feeding still being off. Patient being frequently suctioned. Only small amounts suctioned while ET suctioning patient. Will reassess in one hour.
[2018-04-18] MEDS: insulin glargine (Lantus) pen - multi-dose SQ SCH (21:00)
--- NOTE | 2018-04-18 21:00 | NUR ---
Patient's tube feeding restarted at half of the goal rate. Will reassess and make changes according to patient's tolerance to tube feeding.
--- NOTE | 2018-04-18 23:00 | NUR ---
While repositioning patient, patient again began to spit up tube feeding. patient suctioned and tube feeding stopped at this time. Patient was then put on LIS as patient is not tolerating her tube feedings. Will continue to monitor patient.
[2018-04-19] VITALS (17 sets, daily range): BP systolic 77–127; BP diastolic 50–70
[2018-04-19] MEDS: piperacillin/tazobactam inj. 2.25 GM in normal saline 50ml IV IV SCH ×2 (02:46→08:16)
[2018-04-19] MEDS: ipratropium/albuterol 3ml nebule NEB SCH ×3 (03:06→10:21)
[2018-04-19 03:20] LABS: BASOPHILS % (AUTO) 0.2 % (0-1); EOSINOPHILS % (AUTO) 0.2 % (0-6); HEMATOCRIT 34.1 % (35.0-45.0); HEMOGLOBIN 11.4 g/dl (12.0-16.0); LYMPHOCYTES # (AUTO) 1.3 X10'3 (1.1-4.8); MEAN CORPUSCULAR HEMOGLOBIN 28.8 PG (27.0-31.0); MEAN CORPUSCULAR HGB CONC 33.4 % (33.0-36.5); MEAN CORPUSCULAR VOLUME 86.3 FL (78-98); MEAN PLATELET VOLUME 7.6 FL (7.4-10.4); MONOCYTES # (AUTO) 0.7 X10'3 (0-0.9); NEUTROPHILS # (AUTO) 8.9 X10'3 (1.8-7.7); NEUTROPHILS % (AUTO) 81.6 % (42-75); PLATELET COUNT 248 X10'3 (140-440); RED BLOOD COUNT 3.95 X10'6 (4.20-5.60); RED CELL DISTRIBUTION WIDTH 17.3 % (11.5-14.5); WHITE BLOOD COUNT 10.9 X10'3 (4.5-11.0)
[2018-04-19 03:21] LABS: INR 1.2 INR; PARTIAL THROMBOPLASTIN TIME 30 SECONDS (22-32); PROTHROMBIN TIME 12.1 SECONDS (9.0-12.0)
[2018-04-19 03:39] LABS: ALANINE AMINOTRANSFERASE 26 U/L (12-78); ALBUMIN 2.2 G/DL (3.4-5.0); ALBUMIN/GLOBULIN RATIO 0.6 (1.1-1.5); ALKALINE PHOSPHATASE 54 IU/L (46-116); ANION GAP 15 (8-16); ASPARTATE AMINO TRANSFERASE 117 U/L (10-37); BILIRUBIN,TOTAL 1.5 MG/DL (0.1-1.0); BLOOD UREA NITROGEN 38 MG/DL (7-18); BUN/CREATININE RATIO 24.8 (6.6-38.0); CHLORIDE 104 MMOL/L (99-107); CREATININE 1.53 MG/DL (0.40-0.90); GLUCOSE 140 MG/DL (70-104); MAGNESIUM 1.7 MG/DL (1.5-2.4); PHOSPHORUS 3.1 MG/DL (2.3-4.5); SODIUM 141 MMOL/L (135-145); TOTAL CARBON DIOXIDE 22.4 MMOL/L (24-32); TOTAL PROTEIN 5.7 G/DL (6.4-8.2); eGFR 32 ML/MIN
[2018-04-19 03:44] LABS: POTASSIUM 2.8 MMOL/L (3.5-5.1)
[2018-04-19] MEDS: mineral oil/petrolatum ophthal oint OP SCH ×2 (04:19→08:17)
[2018-04-19] MEDS: amiodarone/D5 360MG/200ML BAG 200 ML IV SCH ×2 (05:30→09:55)
[2018-04-19] MEDS: potassium Cl 40MEQ/NS 500ml 500 ML IV PRN ×2 (05:42→09:55)
--- NOTE | 2018-04-19 06:53 | NUR ---
Problems reprioritized. Patient report given, questions answered & plan of care reviewed with FRANKLYN Price.
--- NOTE | 2018-04-19 07:18 | NUR ---
Patient in room CICU 2008. I have received report from Vivian and had the opportunity to ask questions and assume patient care.
[2018-04-19] MEDS: pantoprazole 40 MG vial IV SCH (08:17)
[2018-04-19] MEDS: lactobacillus rhamnosus 10,000 MMU CELLS/CAPSULE PO SCH (08:17)
[2018-04-19] MEDS: K, MAG and/or Phos replacement - Verify level? MC SCH (08:18)
[2018-04-19] MEDS: heparin, porcine 5000 units/ml vial SQ SCH (08:18)
[2018-04-19] MEDS: normal saline 1000ml 1,000 ML IV SCH (09:55)
[2018-04-19] MEDS ORDERED: morphine 10mg/0.5ml (conc. morphine) oral syringe PO PRN ×2 (11:20→12:10)
[2018-04-19] MEDS ORDERED: acetaminophen 325mg tablet PO PRN (11:20)
[2018-04-19] MEDS ORDERED: LORazepam 2 mg/ml vial IV PRN (11:20)
[2018-04-19] MEDS ORDERED: morphine 10 MG/5 ML UD oral solution PO PRN (11:25)
[2018-04-19] MEDS: morphine 10mg/ml inj. IV PRN ×4 (12:47→22:12)
--- NOTE | 2018-04-19 13:19 | NUR ---
1250 medicated with 10mg morphine, supportive meds dc'd, pt extubated. Saturations 92% on RA, BP 96/55
[2018-04-19] MEDS: LORazepam 2 mg/ml vial IV PRN ×4 (13:24→22:11)
--- NOTE | 2018-04-19 17:25 | NUR ---
Report received from MERCEDEZ RN, Rosangela
--- NOTE | 2018-04-19 17:29 | NUR ---
Problems reprioritized. Patient report given, questions answered & plan of care reviewed with Cyn on Surgical floor .
--- NOTE | 2018-04-19 18:00 | NUR ---
Pt arrived to room 347A from [facility].
--- NOTE | 2018-04-19 19:06 | NUR ---
Problems reprioritized. Patient report given, questions answered & plan of care reviewed with FRANKLYN Dockery.
[2018-04-20] MEDS: LORazepam 2 mg/ml vial IV PRN ×2 (01:58→04:14)
[2018-04-20] MEDS: morphine 10mg/ml inj. IV PRN ×2 (01:59→04:14)
--- NOTE | 2018-04-20 05:03 | NUR ---
RN IS TO DOCUMENT YES TO ALL APPLICABLE AREAS Pronouncement of : 1. Time Physician Notified: [id number] 2. Date of : 04/19/18 3. Time of : 508 4. DNR/Withdraw life support documented:yes DNR/ Comfort Care 5. Monitor strip has been placed on chart:Yes 6. Assessment process is of one-minute duration and includes following criteria: a) Patient is unresponsive to all stimuli: yes b) Pupils fixed and non-reactive: Yes c) Auscultation of precordium reveals absence of heart tones: Yes d) Auscultation of lungs reveals absence of breath sounds: Yes e) Absence of blood pressure / all vital signs: Yes f) QRS complexes are not present on monitor / EKG strip: yes g) Pacer spikes without capture:yes 4. Comments: Noreen Zendejas long time family friend in room, and notified RN that she believed she has passed. Addendum: 04/20/18 at 0530 by Nahed Young RN Amended: Links added. Addendum: 04/20/18 at 0531 by Nahed Young RN Date of to read 04/20/18
--- NOTE | 2018-04-20 07:38 | NUR ---
[facility] has picked up patient, Picc line removed, EJ IV removed, saba catheter removed. Pt clean and appropriate for discharge. No belongings left in room. Family friend Stacey was in room this AM with patient when she passed and left room just before 7am.
== END 2018-04-20 07:45 | disposition expired | DRG 207 ==
LOC: ER 16:28 → ED HOLD 20:08 → CICU 2S 21:30 → SUR 3N 04-19 17:53
PROVIDERS: ADMIT Internal Medicine Critical Care Medicine; ATTEND Internal Medicine Critical Care Medicine
PROC: 5A1955Z Respiratory Ventilation, Greater than 96 Consecutive Hours (ICD-10-PCS; principal; 2018-04-14)
PROC: 5A12012 Performance of Cardiac Output, Single, Manual (ICD-10-PCS; 2018-04-14)
PROC: 4A10X4Z Monitoring of Central Nervous Electrical Activity, External Approach (ICD-10-PCS; 2018-04-15)
PROC: 02HV33Z Insertion of Infusion Device into Superior Vena Cava, Percutaneous Approach (ICD-10-PCS; 2018-04-16)
PROC: B548ZZA Ultrasonography of Superior Vena Cava, Guidance (ICD-10-PCS; 2018-04-16)
PROC: 4A10X4Z Monitoring of Central Nervous Electrical Activity, External Approach (ICD-10-PCS; 2018-04-18)
DX: J96.00 Acute respiratory failure, unspecified whether with hypoxia or hypercapnia (principal); I50.21 Acute systolic (congestive) heart failure; G93.1 Anoxic brain damage, not elsewhere classified; I51.81 Takotsubo syndrome; N17.9 Acute kidney failure, unspecified; J81.1 Chronic pulmonary edema; I46.9 Cardiac arrest, cause unspecified; I11.0 Hypertensive heart disease with heart failure; I48.91 Unspecified atrial fibrillation; M19.90 Unspecified osteoarthritis, unspecified site; R00.0 Tachycardia, unspecified; R00.1 Bradycardia, unspecified; Z51.5 Encounter for palliative care; Z66 Do not resuscitate; Z88.2 Allergy status to sulfonamides; Z79.899 Other long term (current) drug therapy; Z79.01 Long term (current) use of anticoagulants; Z82.5 Family history of asthma and other chronic lower respiratory diseases
CPT/HCPCS: 36415; 36569; 36600; 71045; 76937; 80047; 80048; 80053; 80202; 82550; 82553; 82803; 82948; 83036; 83605; 83735; 83880; 84100; 84132; 84134; 84439; 84443; 84484; 85018; 85025; 85610; 85730; 87040; 87070; 92950; 93005; 93306; 94002; 94003; 94640; 94760; 95816; 96365; 96375; 99291; 99292; C9113; G0378; J0171; J1250; J1265; J1644; J1815; J2060; J2175; J2250; J2270; J2543; J3370; J3480; J3490; J7030; P9045